=== PATIENT | female | born 1950 | race American Indian/Alaskan Native ===

== ENCOUNTER 2018-11-27 10:52 | Outpatient (CLI) | payer MEDICARE ==
--- NOTE | 2018-11-27 13:01 | Ultrasound Report ---
The thyroid and soft tissues of the neck: Patient presents with tenderness and fullness in the region below the right mandible. Her findings however have shown significant resolution. Her symptoms initially were apparently exacerbated by eating. Imaging of the thyroid lobe demonstrates that the right lobe measures 3.5 x 1.3 x 1.3 cm. The lobe is homogeneous and has a normal contour. The left lobe measures 4.0 x 1.4 x 1.2 cm. With the exception of a circumscribed hypodensity measuring 6 mm the echo pattern is also unremarkable. Imaging in the submandibular region as identified by the patient demonstrates that the right submandibular gland contains what appears to be possibly short segments of dilated duct and possible cyst. It measures 11 by 38 mm and has a generally sharp contour. The left submandibular gland measures 13 x 34 mm and is unremarkable. The The patient also indicated some nodularity below her right year. Imaging of this area demonstrated what appeared to be a couple of small lymph nodes the largest measuring 1 cm. Impression: 1. Normal thyroid. 2. Findings in the right submandibular gland raise the possibility of a possible recent obstruction or inflammation.
== END 2018-11-27 10:53 | disposition home or self-care (01) ==
LOC: SPVWC 10:52
DX: R60.9 Edema, unspecified (principal)
CPT/HCPCS: 76536